=== PATIENT | female | born 1945 | race Caucasian/White ===

== ENCOUNTER 2016-11-16 17:10 | Emergency (ER) | payer MEDICARE, OTHER ==
[~2016-11-16] VITALS: Ht 160 cm; Wt 76.4 kg
[~2016-11-16 17:10] MED LIST: ALBU2.5V NEB; BIMA12.5OS OU; BRIM15OS OU; CHOL200016 PO; DEXT15SY3 PO; DIVA500T35 PO; ENOX40DI9 SQ; FAMO20 PO; LACO100 PO; LACT30L PO; LEVE500T53 PO; LEVO200 PO; MULT1CAP32 PO; PHEN100C23 PO; SENN1TAB77 PO; SERT50TA12 PO
[2016-11-16] MEDS ORDERED: HYOS-14 PO (17:26)
[2016-11-16] MEDS ORDERED: PHENY100 PO (17:26)
[2016-11-16] MEDS ORDERED: BISA10S PR (17:26)
[2016-11-16] MEDS ORDERED: MS100DRIP PO (17:26)
[2016-11-16] MEDS ORDERED: LORA0.5T2 PO (17:26)
[2016-11-16 17:28] LABS: GLUCOSE,POINT OF CARE 132 MG/DL (70-110)
[2016-11-16] MEDS ORDERED: SODIUM CHLORIDE 0.9% 1,000 ML IV ONE ×2 (17:45)
[2016-11-16 17:59] LABS: BASOPHILS % (AUTO) 0.1 % (0.0-2.0); EOSINOPHILS % (AUTO) 0.3 % (1.0-6.0); HEMOGLOBIN 12.8 g/dL (12.0-16.0); LYMPHOCYTES # (AUTO) 0.8 K/uL (1.0-4.8); LYMPHOCYTES % (AUTO) 11.9 % (22.0-44.0); MEAN CORPUSCULAR HEMOGLOBIN 32.3 pg (26.0-34.0); MEAN CORPUSCULAR HGB CONC 33.6 G/dL (31.0-37.0); MEAN CORPUSCULAR VOLUME 96 fL (80-100); MONOCYTES # (AUTO) 0.6 K/uL (0.1-1.0); MONOCYTES % (AUTO) 8.2 % (2.0-9.0); NEUTROPHILS # (AUTO) 5.5 K/uL (1.8-7.7); NEUTROPHILS % (AUTO) 79.5 % (40.0-70.0); PLATELET COUNT (AUTO) 222 K/uL (150-450); RED BLOOD CELL COUNT(AUTO) 3.95 MIL/uL (4.00-5.20); RED CELL DISTRIBUTION WIDTH 14.4 % (11.5-14.5); WHITE BLOOD COUNT (AUTO) 6.9 K/uL (4.5-11.0)
[2016-11-16 18:07] LABS: ANION GAP 11 mmol/L (8-16); CALCIUM, TOTAL 9.1 mg/dL (8.8-10.5); CARBON DIOXIDE 25 mmol/L (22-29); CHLORIDE 102 mmol/L (98-107); CREATININE 0.88 mg/dL (0.60-1.30); GLOMERULAR FILTR. RATE CALC > 60 mL/min (>60); POTASSIUM 3.4 mmol/L (3.5-5.1); SODIUM SERUM 138 mmol/L (136-145); UREA NITROGEN, BLOOD 17 mg/dL (7-18)
[2016-11-16 18:13] LABS: ALANINE AMINOTRANSFERASE 36 U/L (12-78); ALBUMIN 3.1 g/dL (3.4-5.0); ASPARTATE AMINOTRANSFERASE 29 U/L (15-37); BILIRUBIN,TOTAL 0.3 mg/dL (0.1-1.0); TOTAL PROTEIN, SERUM 7.9 g/dL (6.4-8.2)
[2016-11-16 18:27] LABS: VALPROIC ACID 4 mcg/mL (50-100)
[2016-11-16] MEDS ORDERED: DIVALPROEX SODIUM 250 MG DR TABLET PO ONE (18:45)
[2016-11-16] MEDS ORDERED: LevETIRAcetam 1,000 MG in DEXTROSE 5%-WATER 100 ML IV ONE (18:45)
[2016-11-16 20:01] VITALS: BP 95/42
== END 2016-11-16 20:17 | disposition home or self-care (01) ==
LOC: EMS 17:12
DX: G40.909 Epilepsy, unspecified, not intractable, without status epilepticus (principal); J44.9 Chronic obstructive pulmonary disease, unspecified; K21.9 Gastro-esophageal reflux disease without esophagitis; E03.9 Hypothyroidism, unspecified; Z86.73 Personal history of transient ischemic attack (TIA), and cerebral infarction without residual deficits
CPT/HCPCS: 36415; 51702; 80053; 80164; 82962; 85025; 96361; 96374; 99285; J0712; J7030; J7060